=== PATIENT | male | born 1960 | race Caucasian/White ===

== ENCOUNTER 2019-11-09 12:51 | Emergency (ER) | payer BC, MEDICAID ==
[~2019-11-09] VITALS: Ht 182.9 cm; Wt 81.0 kg
[~2019-11-09 12:51] MED LIST: HYDR25SU32 RC; LISI-600 PO
[2019-11-09] MEDS ORDERED: acetaminophen 325mg tablet PO ONE ×2 (13:35→13:45)
[2019-11-09] MEDS ORDERED: ALBU8.5H8 IH (13:39)
[2019-11-09] MEDS ORDERED: DOXY100C77 PO (13:39)
[2019-11-09] MEDS ORDERED: FLUT16SP11 BOTHNARES (13:39)
[2019-11-09] MEDS ORDERED: TAM75C PO (13:39)
[2019-11-09] MEDS ORDERED: acetaminophen 160mg/5ml oral suspension PO ONE (13:40)
[2019-11-09] MEDS ORDERED: triamcinolone acetonide 40mg/ml inj IM ONE (13:40)
[2019-11-09 14:22] VITALS: BP 137/92
== END 2019-11-09 14:23 | disposition home or self-care (01) ==
LOC: ER 12:52
DX: J32.9 Chronic sinusitis, unspecified (principal); H92.03 Otalgia, bilateral; I10 Essential (primary) hypertension; F17.210 Nicotine dependence, cigarettes, uncomplicated; Z90.49 Acquired absence of other specified parts of digestive tract; Z98.890 Other specified postprocedural states; Z88.0 Allergy status to penicillin; Z88.5 Allergy status to narcotic agent; Z79.899 Other long term (current) drug therapy
CPT/HCPCS: 96372; 99283; J3301

== ENCOUNTER 2020-02-02 11:57 | Emergency (ER) | payer BC ==
[~2020-02-02] VITALS: Ht 180.3 cm; Wt 79.5 kg
[~2020-02-02 11:57] MED LIST changes: +ALBU8.5H8 IH; +FLUT16SP11 BOTHNARES
[2020-02-02 12:20] LABS: BASOPHILS # (AUTO) 0.1 X10'3 (0-0.2); BASOPHILS % (AUTO) 0.9 % (0-1); EOSINOPHILS # (AUTO) 0.1 X10'3 (0-0.9); EOSINOPHILS % (AUTO) 0.9 % (0-6); HEMOGLOBIN 15.3 g/dl (14.0-17.9); LYMPHOCYTES # (AUTO) 2.4 X10'3 (1.1-4.8); LYMPHOCYTES % (AUTO) 26.1 % (21-51); MEAN CORPUSCULAR HGB CONC 33.9 g/dL (33.0-36.5); MEAN CORPUSCULAR VOLUME 100.2 FL (78-98); MEAN PLATELET VOLUME 8.6 FL (7.4-10.4); MONOCYTES # (AUTO) 0.7 X10'3 (0-0.9); MONOCYTES % (AUTO) 7.7 % (2-12); NEUTROPHILS % (AUTO) 64.4 % (42-75); PLATELET COUNT 171 X10'3 (140-440); RED BLOOD COUNT 4.49 X10'6 (4.70-6.10); RED CELL DISTRIBUTION WIDTH 14.1 % (11.5-14.5); WHITE BLOOD COUNT 9.3 X10'3 (4.5-11.0)
[2020-02-02 12:31] LABS: PARTIAL THROMBOPLASTIN TIME 28 SECONDS (22-32)
[2020-02-02 12:34] LABS: ALANINE AMINOTRANSFERASE 43 U/L (12-78); ALBUMIN 3.7 G/DL (3.4-5.0); ALBUMIN/GLOBULIN RATIO 0.9 (1.1-1.5); ALKALINE PHOSPHATASE 73 IU/L (46-116); ANION GAP 9 (8-16); ASPARTATE AMINO TRANSFERASE 30 U/L (10-37); BILIRUBIN,TOTAL 0.4 MG/DL (0.1-1.0); BLOOD UREA NITROGEN 14 MG/DL (7-18); BUN/CREATININE RATIO 13.5 (5.4-32.0); CALCIUM 8.9 MG/DL (8.5-10.1); CHLORIDE 106 MMOL/L (99-107); CREATININE 1.04 MG/DL (0.60-1.10); GLUCOSE 107 MG/DL (70-104); POTASSIUM 4.2 MMOL/L (3.5-5.1); SODIUM 140 MMOL/L (135-145); TOTAL CARBON DIOXIDE 25.3 MMOL/L (24-32); TOTAL PROTEIN 7.6 G/DL (6.4-8.2); eGFR 73 ML/MIN
[2020-02-02] MEDS ORDERED: NO HOME MEDS (12:48)
[2020-02-02 13:41] VITALS: BP 140/84
== END 2020-02-02 13:38 | disposition home or self-care (01) ==
LOC: ER 11:58
DX: R07.81 Pleurodynia (principal); R07.89 Other chest pain; R09.89 Other specified symptoms and signs involving the circulatory and respiratory systems; R06.02 Shortness of breath; R49.9 Unspecified voice and resonance disorder; I10 Essential (primary) hypertension; F17.200 Nicotine dependence, unspecified, uncomplicated; Z90.49 Acquired absence of other specified parts of digestive tract; Z98.890 Other specified postprocedural states; Z88.0 Allergy status to penicillin; Z88.5 Allergy status to narcotic agent; Z79.899 Other long term (current) drug therapy
CPT/HCPCS: 36415; 71045; 80053; 84484; 85025; 85610; 85730; 93005; 99285

== ENCOUNTER 2020-08-29 13:25 | Emergency (ER) | payer BC ==
[~2020-08-29] VITALS: Ht 180.3 cm; Wt 80.0 kg
[~2020-08-29 13:25] MED LIST changes: -ALBU8.5H8 IH; -FLUT16SP11 BOTHNARES; -HYDR25SU32 RC; -LISI-600 PO; +NO HOME MEDS
[2020-08-29] MEDS ORDERED: lisinopril 10 MG tablet PO ONE (14:50)
[2020-08-29 15:17] LABS: CLARITY,URINE CLEAR (Clear); COLOR,URINE YELLOW (Yellow); GLUCOSE, URINE NEGATIVE (Neg); KETONES,URINE TRACE mg/dl (Neg); LEUKOCYTE ESTERASE ,URINE NEGATIVE (Neg); NITRITES, URINE NEGATIVE (Neg); OCCULT BLOOD,URINE NEGATIVE (Neg); PH,URINE 5.5 (4.8-8.0); PROTEIN,URINE NEGATIVE (Neg); UROBILINOGEN,URINE 0.2 E.U/dL (0.2-1.0)
[2020-08-29 15:28] LABS: URINE AMPHETAMINE SCREEN NEGATIVE (Neg); URINE BARBITUATE SCREEN NEGATIVE (Neg); URINE BENZODIAZEPINES SCREEN NEGATIVE (Neg); URINE CANNABINOID SCREEN NEGATIVE (Neg); URINE COCAINE SCREEN NEGATIVE (Neg); URINE METHADONE SCREEN NEGATIVE (Neg); URINE OPIATE SCREEN NEGATIVE (Neg); URINE PHENCYCLIDINE SCREEN NEGATIVE (Neg)
--- NOTE | 2020-08-29 15:31 | NUR ---
PHONED [facility] [place] AND DISCUSSED PATIENT WITH HIM
[2020-08-29 15:40] LABS: BASOPHILS # (AUTO) 0.1 X10'3 (0-0.2); BASOPHILS % (AUTO) 0.9 % (0-1); EOSINOPHILS # (AUTO) 0.1 X10'3 (0-0.9); EOSINOPHILS % (AUTO) 0.9 % (0-6); HEMOGLOBIN 16.2 g/dl (14.0-17.9); LYMPHOCYTES # (AUTO) 2.7 X10'3 (1.1-4.8); LYMPHOCYTES % (AUTO) 22.2 % (21-51); MEAN CORPUSCULAR HEMOGLOBIN 33.4 PG (27.0-31.0); MEAN CORPUSCULAR HGB CONC 33.8 g/dL (33.0-36.5); MEAN CORPUSCULAR VOLUME 98.6 FL (78-98); MEAN PLATELET VOLUME 8.7 FL (7.4-10.4); MONOCYTES # (AUTO) 0.8 X10'3 (0-0.9); NEUTROPHILS # (AUTO) 8.3 X10'3 (1.8-7.7); PLATELET COUNT 204 X10'3 (140-440); RED BLOOD COUNT 4.87 X10'6 (4.70-6.10); RED CELL DISTRIBUTION WIDTH 13.2 % (11.5-14.5); WHITE BLOOD COUNT 12.1 X10'3 (4.5-11.0)
[2020-08-29 15:44] LABS: UA COLLECTION TYPE CLN CATCH MIDSTREAM
[2020-08-29 15:55] LABS: ALANINE AMINOTRANSFERASE 26 U/L (12-78); ALBUMIN 4.1 G/DL (3.4-5.0); ALBUMIN/GLOBULIN RATIO 0.9 (1.1-1.5); ALKALINE PHOSPHATASE 78 IU/L (46-116); ANION GAP 12 (8-16); ASPARTATE AMINO TRANSFERASE 12 U/L (10-37); BILIRUBIN,TOTAL 0.5 MG/DL (0.1-1.0); BLOOD UREA NITROGEN 13 MG/DL (7-18); BUN/CREATININE RATIO 11.6 (5.4-32.0); CALCIUM 9.6 MG/DL (8.5-10.1); CHLORIDE 99 MMOL/L (99-107); CREATININE 1.12 MG/DL (0.60-1.10); GLUCOSE 90 MG/DL (70-104); POTASSIUM 4.3 MMOL/L (3.5-5.1); SODIUM 137 MMOL/L (135-145); TOTAL CARBON DIOXIDE 26.5 MMOL/L (24-32); TOTAL PROTEIN 8.5 G/DL (6.4-8.2); eGFR 67 ML/MIN
[2020-08-29 16:05] LABS: ETHANOL < 0.010 GM/DL (0.0-0.010)
--- NOTE | 2020-08-29 16:16 | NUR ---
packet faxed to [facility]
--- NOTE | 2020-08-29 16:22 | NUR ---
Cornelius SNELL at bedside evaluating patient.
[2020-08-29] MEDS ORDERED: HYDR50CA PO (17:32)
[2020-08-29] MEDS ORDERED: QUET-1 PO (17:32)
[2020-08-29] MEDS ORDERED: ESCI20TA16 PO (17:32)
--- NOTE | 2020-08-29 18:15 | NUR ---
I DISCUSSED ALL 3 NEW MEDICATIONS INCLUDING INDICATIONS, DOSING AND FRQUENCY AND COMMON SIDE EFFECTS OF SEROQUEL, VISTARIL, AND LEXAPRO. PATIENT VERBALIZED AND PROVIDED MEDICATION SHEETS FOR FUTURE REFERRAL. PATIENT VERBALIZED THAT HE WILL STOP AT [facility] AND GET HIS PRESCRIPTIONS TONIGHT. PATIENT IS CALM AND COOPERATIVE AND HAS A SUPPORT NETWORK. HIS GIRLFRIEND AND HIS SISTER ARE AVAILABLE FOR HIM "TO LEAN ON." HE WANTS TO GET INTO THERAPY. HE HAS BEEN REFERRED TO [facility] ([facility]INTENSIVE OUTPATIENT PROGRAM FOR MENTAL HEALTH. HE WILL CALL THE NUMBERS ON THE PROVIDER SHEET TO GET IN SONAL TO A MENTAL HEALTH PROVIDER. HE WANTS TO TRY TO GET GET INTO A PROVIDER AT [facility] WHICH IS AFFILIATED TO [facility]. IF HE CAN NOT GET INTO TO SEE A PROVIDER THERE FOR COUNSELING AND MEDICAL MANAGEMENT HE WILL CALL ALL PROVIDERS ON THE LIST.
[2020-08-29 18:28] VITALS: BP 151/65
== END 2020-08-29 18:20 | disposition home or self-care (01) ==
LOC: ER 13:26
DX: F31.9 Bipolar disorder, unspecified (principal); F17.200 Nicotine dependence, unspecified, uncomplicated; I10 Essential (primary) hypertension; J32.9 Chronic sinusitis, unspecified; Z88.0 Allergy status to penicillin; Z88.5 Allergy status to narcotic agent; Z79.899 Other long term (current) drug therapy
CPT/HCPCS: 36415; 80053; 80305; 80320; 81003; 84443; 85025; 99284

== ENCOUNTER 2020-10-29 10:01 | Emergency (ER) | payer BC ==
[~2020-10-29] VITALS: Ht 180.3 cm; Wt 80.9 kg
[~2020-10-29 10:01] MED LIST changes: +ESCI20TA16 PO; +HYDR50CA PO; +QUET-1 PO
[2020-10-29 11:09] LABS: BASOPHILS # (AUTO) 0.1 X10'3 (0-0.2); BASOPHILS % (AUTO) 1.1 % (0-1); EOSINOPHILS # (AUTO) 0.1 X10'3 (0-0.9); EOSINOPHILS % (AUTO) 2.1 % (0-6); HEMATOCRIT 44.8 % (42.0-52.0); HEMOGLOBIN 15.2 g/dl (14.0-17.9); LYMPHOCYTES # (AUTO) 2.2 X10'3 (1.1-4.8); LYMPHOCYTES % (AUTO) 30.6 % (21-51); MEAN CORPUSCULAR HEMOGLOBIN 32.8 PG (27.0-31.0); MEAN CORPUSCULAR HGB CONC 33.9 g/dL (33.0-36.5); MEAN CORPUSCULAR VOLUME 96.7 FL (78-98); MEAN PLATELET VOLUME 8.6 FL (7.4-10.4); MONOCYTES # (AUTO) 0.6 X10'3 (0-0.9); NEUTROPHILS # (AUTO) 4.2 X10'3 (1.8-7.7); NEUTROPHILS % (AUTO) 58.2 % (42-75); PLATELET COUNT 192 X10'3 (140-440); RED BLOOD COUNT 4.64 X10'6 (4.70-6.10); RED CELL DISTRIBUTION WIDTH 13.6 % (11.5-14.5); WHITE BLOOD COUNT 7.1 X10'3 (4.5-11.0)
[2020-10-29 11:35] LABS: ALANINE AMINOTRANSFERASE 25 U/L (12-78); ALBUMIN 3.8 G/DL (3.4-5.0); ALBUMIN/GLOBULIN RATIO 0.9 (1.1-1.5); ALKALINE PHOSPHATASE 79 IU/L (46-116); ANION GAP 8 (8-16); ASPARTATE AMINO TRANSFERASE 19 U/L (10-37); BILIRUBIN,TOTAL 0.3 MG/DL (0.1-1.0); BLOOD UREA NITROGEN 16 MG/DL (7-18); BUN/CREATININE RATIO 15.4 (5.4-32.0); CALCIUM 8.9 MG/DL (8.5-10.1); CHLORIDE 105 MMOL/L (99-107); CREATININE 1.04 MG/DL (0.60-1.10); GLUCOSE 110 MG/DL (70-104); POTASSIUM 4.5 MMOL/L (3.5-5.1); SODIUM 139 MMOL/L (135-145); TOTAL CARBON DIOXIDE 26.1 MMOL/L (24-32); TOTAL PROTEIN 7.9 G/DL (6.4-8.2); eGFR 73 ML/MIN
[2020-10-29] MEDS ORDERED: LISI-600 PO (12:30)
[2020-10-29] MEDS ORDERED: VAL5T PO (12:30)
[2020-10-29 12:36] VITALS: BP_DIAS 92
[2020-10-29] MEDS ORDERED: lisinopril 10 MG tablet PO ONE (12:45)
[2020-10-29 12:47] VITALS: BP_SYST 176
== END 2020-10-29 12:50 | disposition home or self-care (01) ==
LOC: ER 10:03
DX: M79.18 Myalgia, other site (principal); R07.89 Other chest pain; I10 Essential (primary) hypertension; F17.200 Nicotine dependence, unspecified, uncomplicated; Z90.49 Acquired absence of other specified parts of digestive tract; Z72.89 Other problems related to lifestyle; Z88.0 Allergy status to penicillin; Z88.8 Allergy status to other drugs, medicaments and biological substances; Z79.899 Other long term (current) drug therapy
CPT/HCPCS: 36415; 71045; 80053; 83880; 84484; 85025; 93005; 99285

== ENCOUNTER 2024-01-03 11:54 | Emergency (ER) | payer BC, MEDICAID ==
[~2024-01-03] VITALS: Ht 180.3 cm; Wt 88.2 kg
[2024-01-03] MEDS ORDERED: OXYM30SP26 BOTHNARES (13:47)
[2024-01-03 13:56] VITALS: BP 188/92; PULSE 70; RESP 17; TEMP 98.1; O2SAT 98
== END 2024-01-03 13:58 | disposition home or self-care (01) ==
LOC: ER 11:55
DX: R04.0 Epistaxis (principal); I10 Essential (primary) hypertension; Z90.49 Acquired absence of other specified parts of digestive tract; Z72.89 Other problems related to lifestyle; Z88.0 Allergy status to penicillin; Z79.899 Other long term (current) drug therapy
CPT/HCPCS: 99282

== ENCOUNTER 2024-11-21 09:41 | Day surgery (SDC) | payer MEDICAID ==
[2024-11-17 11:09] LABS: BASOPHILS # (AUTO) 0.1 X10'3 (0-0.2); BASOPHILS % (AUTO) 1.2 % (0-1); EOSINOPHILS # (AUTO) 0.2 X10'3 (0-0.9); EOSINOPHILS % (AUTO) 1.6 % (0-6); HEMATOCRIT 45.7 % (42.0-52.0); HEMOGLOBIN 15.5 g/dl (14.0-17.9); LYMPHOCYTES # (AUTO) 2.5 X10'3 (1.1-4.8); LYMPHOCYTES % (AUTO) 25.4 % (21-51); MEAN CORPUSCULAR HEMOGLOBIN 33.2 PG (27.0-31.0); MEAN CORPUSCULAR HGB CONC 33.9 g/dL (33.0-36.5); MEAN CORPUSCULAR VOLUME 97.9 FL (78-98); MONOCYTES # (AUTO) 0.9 X10'3 (0-0.9); MONOCYTES % (AUTO) 8.9 % (2-12); NEUTROPHILS # (AUTO) 6.1 X10'3 (1.8-7.7); NEUTROPHILS % (AUTO) 62.9 % (42-75); PLATELET COUNT 221 X10'3 (140-440); RED BLOOD COUNT 4.67 X10'6 (4.70-6.10); RED CELL DISTRIBUTION WIDTH 15.4 % (11.5-14.5); WHITE BLOOD COUNT 9.7 X10'3 (4.5-11.0)
[2024-11-17 11:18] LABS: ANION GAP 8 (8-16); BLOOD UREA NITROGEN 12 MG/DL (7-18); CALCIUM 9.2 MG/DL (8.5-10.1); CHLORIDE 97 MMOL/L (99-107); CREATININE 1.09 MG/DL (0.60-1.10); GLUCOSE 103 MG/DL (70-104); SODIUM 131 MMOL/L (135-145); TOTAL CARBON DIOXIDE 26.2 MMOL/L (24-32); eGFR 68 ML/MIN
[2024-11-17 11:22] LABS: APTT 30 SECONDS (22-32); PROTHROMBIN TIME 10.3 SECONDS (9.0-12.0)
[2024-11-21] VITALS (9 sets, daily range): BP systolic 163–190; BP diastolic 83–100; PULSE 59–66; RESP 16; TEMP 97.7; O2SAT 97–99
[~2024-11-21] VITALS: Ht 180.3 cm; Wt 85.3 kg
[~2024-11-21 09:41] MED LIST changes: -ESCI20TA16 PO; +ESCI20TA52 PO; +OXYM30SP26 BOTHNARES
[2024-11-21] MEDS ORDERED: ASPI-611 PO (10:05)
[2024-11-21] MEDS ORDERED: LISI40TA13 PO (10:05)
[2024-11-21 11:12] LABS: CHOL/HDL RATIO 2.9 (0.00-4.99); CHOLESTEROL 196 MG/DL (0-200); HDL CHOLESTEROL 67 MG/DL (35-60); LDL CHOLESTEROL 113 MG/DL (50-100); TRIGLYCERIDES 83 MG/DL (20-135)
[2024-11-21] MEDS: diphenhydrAMINE 25mg capsule PO PRN (11:26)
[2024-11-21] MEDS: LORazepam 0.5 MG tablet PO PRN (11:26)
[2024-11-21] MEDS: normal saline 1,000 ML IV SCH (11:28)
[2024-11-21] MEDS ORDERED: midazolam 1 mg/ML 2ml injection ONE ×3 (12:56→14:33)
[2024-11-21] MEDS ORDERED: LIDOcaine 1% 30ml preserv. free vial ONE (12:56)
[2024-11-21] MEDS ORDERED: iohexol 350MG/ML 100ml bottle IV ONE (12:57)
[2024-11-21] MEDS ORDERED: fentaNYL/PF 50MCG/1 ML 2ML syringe ONE (12:57)
[2024-11-21] MEDS ORDERED: heparin 1,000 UNITS/NS 500ml 500 ML ONE ×2 (12:57→14:35)
[2024-11-21] MEDS ORDERED: heparin 1,000unit/ml 10ml vial 10 ML ONE (13:37)
[2024-11-21] MEDS ORDERED: clopidogrel 300mg tablet ONE (14:58)
[2024-11-21] MEDS ORDERED: hydrALAZINE 20mg/ml inj. ONE (15:09)
[2024-11-21] MEDS ORDERED: HYDROcodone/acetaminophen 10/325mg tab PO PRN (15:45)
[2024-11-21] MEDS ORDERED: HYDROcodone/acetaminophen 5mg/325mg tablet PO PRN (15:45)
[2024-11-21] MEDS ORDERED: CLOP75TA34 PO (15:47)
[2024-11-21] MEDS ORDERED: ATOR-2 PO (15:47)
== END 2024-11-21 17:45 | disposition home or self-care (01) ==
LOC: CATH LAB 09:41 → SSTAY O 17:45
PROVIDERS: ATTEND Student in an Organized Health Care Education/Training Program
DX: I70.212 Atherosclerosis of native arteries of extremities with intermittent claudication, left leg (principal); I10 Essential (primary) hypertension; I65.23 Occlusion and stenosis of bilateral carotid arteries; E78.5 Hyperlipidemia, unspecified; Z79.899 Other long term (current) drug therapy; Z98.890 Other specified postprocedural states
CPT/HCPCS: 36415; 37221; 37223; 75625; 75716; 80048; 80061; 85025; 85610; 85730; 93005; 99152; 99153; C1760; C1876; J0360; J1644; J2003; J2250; J3010; J7030; Q0163; Q9967; 36245; 36247; A6258; A6449; C1725; C1751; C1769; C1894

== ENCOUNTER 2024-11-25 11:54 | Emergency (ER) | payer MEDICAID ==
[~2024-11-25] VITALS: Ht 180.3 cm; Wt 80.8 kg
[~2024-11-25 11:54] MED LIST changes: +ASPI-611 PO; +ATOR-2 PO; +CLOP75TA34 PO; -ESCI20TA52 PO; -HYDR50CA PO; +LISI40TA13 PO; -NO HOME MEDS; -OXYM30SP26 BOTHNARES; -QUET-1 PO
[2024-11-25 12:40] VITALS: TEMP 98; O2SAT 100
[2024-11-25 12:50] VITALS: BP 142/81; PULSE 67; RESP 16
== END 2024-11-25 13:46 | disposition home or self-care (01) ==
LOC: ER 11:54
DX: S30.1XXA Contusion of abdominal wall, initial encounter (principal); I10 Essential (primary) hypertension; F31.9 Bipolar disorder, unspecified; Z88.0 Allergy status to penicillin; Z88.5 Allergy status to narcotic agent; Z87.19 Personal history of other diseases of the digestive system; Z90.49 Acquired absence of other specified parts of digestive tract; Z79.02 Long term (current) use of antithrombotics/antiplatelets; X58.XXXA Exposure to other specified factors, initial encounter; Y93.89 Activity, other specified; Y92.89 Other specified places as the place of occurrence of the external cause; Y99.8 Other external cause status
CPT/HCPCS: 99281